=== PATIENT | female | born 1980 | race Caucasian/White ===

== ENCOUNTER 2017-05-10 22:33 | Emergency (ER) | payer BC, OTHER ==
--- NOTE | 2017-05-10 23:50 | CT ---
NONCONTRAST CT HEAD: 05/10/17 HISTORY: Unwitnessed fall. Head and neck pain. COMPARISON: None available. FINDINGS: There is no evidence of a hemorrhage, acute infarction, mass effect, or midline shift. The ventricula r system is normal in size, shape and position. There is left periorbital subcutaneous soft tissue sw elling. Calvarial structures are intact. No fracture is visualized. Mucosal thickening is present in the left sphenoid sinus. The remainder of the visualized paranasal s inuses and mastoid air cells are clear. IMPRESSION: 1. No acute intracranial abnormalities demonstrated. 2. Left periorbital subcutaneous soft tissue swelling. 3. Sinus disease involving the left sphenoid sinus. POS: [facility]
--- NOTE | 2017-05-11 00:02 | CT ---
NONCONTRAST CT CERVICAL SPINE 05/10/17 HISTORY: Unwitnessed fall. Head and neck pain. TECHNIQUE: Contiguous axial CT images are obtained through the cervical spine from the skull to the T1-2 level. Sagittal and coronal reformat images are provided. FINDINGS: There is slight retrolisthesis of C5 on C6 and C6 on C7. There is loss of intervertebral disc space h eight at these levels with associated end plate degenerative changes. The vertebral body heights are within normal limits. No fracture is present. There is rotation at the C1-2 level likely related to patient rotation as opposed to rotary subluxati on. There is a disc osteophyte complex and uncinate process hypertrophy at C5-6 level resulting in mild l eft sided neural foraminal narrowing. There is gas density adjacent to the left neural foramen which may represent gas within a small disc fragment. There is mild generalized narrowing of the central s noa canal. There is a broad based disc osteophyte complex with retrolisthesis also present at C6-7 level resulting in mild to moderate bilateral neural foraminal narrowing and mild narrowing of the ce ntral spinal canal. There is mild symmetric biapical pleural and parenchymal scarring present. There is mild prevertebral soft tissue swelling anterior to the C3-4 and C4-5 levels. There is mucosal thickening partially imaged within the left sphenoid sinus. IMPRESSION: 1. Small amount of fluid within the prevertebral space. Ligamentous injury cannot be entirely ex cluded. MRI is recommended. 2. No evidence of a fracture, but there are degenerative changes seen in the spine with broad ba sed disc osteophyte complexes at C4-5 and C5-6 levels and to a lesser extent the C6-7 level. There is encroachment on the central spinal canal at these levels with narrowing of the neural foramina. 3. Slight retrolisthesis of C5 on C6 and C6 on C7. 4. Above findings discussed with Dr. Shankar in the Emergency Department on 05/10/17 POS: [facility]
[2017-05-11] MEDS ORDERED: diphenhydrAMINE 50 MG/ML VIAL ONE (01:31)
--- NOTE | 2017-05-11 09:02 | CON ---
DATE OF CONSULTATION: 05/11/2017 Orville Nagel PA-C dictating for Dr. Edmundo Rodriguez. This is a 50-minute initial patient consult, in which greater than 50% of the exam was spent in couns eling and coordinating patient's care and review of patient's medical records and appropriate imaging studies. CHIEF COMPLAINT: Status post fall with posterior neck pain. HISTORY OF PRESENT ILLNESS: Ms. Hunt is a pleasant 37-year-old female, who fell at her home [facility] this morning. Apparently, the patient was partaking in alcohol and fell on the left side of her face. She began to experience some headache with concussive-like symptoms including short-term memor y loss. She perhaps had a few seconds of loss of consciousness. She was brought to [facility], and a head CT that was negative for intracranial pathology includin g negative intracranial bleed. A cervical spine CT was negative for fracture, but given the patient' s mechanism of injury and continued neck pain, an MRI was obtained, which shows a ligamentous injury of the anterior longitudinal ligament with even a tear of the ligament at the C5-6 level and it also extends into the disk space at the C5-C6 level. The cervical spine is maintained. The patient does not have any arm pain complaints at this time and no weakness in the arms. PHYSICAL EXAMINATION: The patient is awake, alert, and appropriate. She has full strength in the bi lateral upper and bilateral lower extremities with intact sensation to light touch throughout. She h as no myelopathic features on exam including negative Rain's bilaterally. No increased tone. She has no pronator drift and her GCS currently is 15. She is in a well-fitting [place] collar. IMPRESSION/DIAGNOSIS: Status post fall with posterior neck pain and anterior longitudinal ligament t ear of C5-6 noted on MRI. PLAN: I discussed the patient's case and imaging with Dr. Rodriguez. At this time, patient will need t o remain on an [place] collar at all times and a [place] collar for showers. We will see her in t he clinic on Saturday with upright cervical AP and lateral x-rays and I have discussed this in detail w ith the patient and her at bedside. I reviewed correct usage of her [place] collar and again s he would need to wear this at all times. We reviewed post-injury activity restrictions including not lifting more than 10 pounds and no driving at this time. Ample opportunity was given to the patient and her to ask their questions and concerns. The hope is that we can avoid surgery at this time, but we will reevaluate her on Saturday for further steps in treatment. Both the patient and her are agreeable to this plan. The patient is safe for discharge at this time.
--- NOTE | 2017-05-11 10:06 | MRI ---
PRELIMINARY REPORT/[facility]/EMERGENCY AFTER HOURS PROCEDURE: EXAM: MR Cervical Spine Without Intravenous Contrast CLINICAL HISTORY: 37 years old, female; Injury or trauma; Fall; Initial encounter; Sprain or strain, cervical ligaments ; Injury date: 05-10-17; Patient HX: Trip and fall, C/O head and neck pain, pt admits to alcohol consu mption; Additional info: Motion on exam; Multiple attempts made to aide w/ patient motion; Dr. Shankar ordered benadryl, second attempt made on c-spine exam, medication helped minimally TECHNIQUE: Magnetic resonance images of the cervical spine without intravenous contrast in multiple planes. COMPARISON: No relevant prior studies available. FINDINGS: Artifacts: Detail/sensitivity limited by motion and other artifacts. Vertebrae: See below. Marrow edema in the C5, C6, and C7 vertebral bodies. No visible fracture. Epidural space: No epidural hematoma or collection. Interspaces: There is intervertebral disc desiccation at all visible levels. See below. Spinal cord: Normal morphology and signal. Soft tissues: Prevertebral/retropharyngeal soft tissue edema at the C2-T2 levels. Anterior longitudin al ligament tear at C5-C6. Edema in the interspinous ligaments at C4-C5 and C5-C6. The posterior long itudinal ligaments appear intact. DISCS/SPINAL CANAL/NEURAL FORAMINA: C2-C3: No disc herniation. No significant stenosis. C3-C4: Mild diffuse disc bulge. Mild spinal canal stenosis. C4-C5: Diffuse disc bulge with superimposed broad-based posterior central zone disc extrusion and lef t uncovertebral osteophyte. Mild spinal canal stenosis and mild left neuroforaminal stenosis. C5-C6: Grade 1 retrolisthesis. Diffuse disc bulge with superimposed broad-based posterior and bilater al subarticular zone disc extrusion, mild endplate spurring. Moderate spinal canal stenosis and mild left and [id number] right neuroforaminal stenoses. There is possible right C6 nerve root impi ngement within the neural foramen. C6-C7: Grade 1 retrolisthesis. Diffuse disc bulge with superimposed broad-based posterior and bilater al subarticular zone disc extrusion, and endplate spurring. Moderate spinal canal stenosis and severe bilateral neuroforaminal stenoses. There are possible bilateral C7 nerve root impingements within th e neuroforamina. C7-T1: No disc herniation. No significant stenosis. IMPRESSION: Study limited by artifacts. Anterior longitudinal ligament tear at C5-C6. Interspinous ligaments sprains or partial tears at C4-C5 and C5-C6. Prevertebral/retropharyngeal soft tissue edema at the C2-T2 levels. Possible right C6 and bilateral C7 nerve root impingements due to neuroforaminal stenoses at C5-C6 an d C6-C7 respectively. Marrow edema in the C5, C6, and C7 vertebral bodies, which could be due to nonspecific inflammation or bone contusions. No visible fracture. Bone detail on MRI is limited. Please correlate with cervical spine CT if available. Thank you for allowing us to participate in the care of your patient. Dictated and Authenticated by: Pernell Alexander MD 05/11/2017 4:15 AM Central Time ([place] & [place]) FINAL REPORT EMERGENCY AFTER HOURS CERVICAL SPINE MRI: Date: 05/11/17 IMPRESSION: I agree with the preliminary interpretation given by Harsh. When correlating with CT examination perfo rmed earlier same date, there is no evidence for fracture. Advanced cervical degenerative changes are noted in addition to the traumatic soft tissue findings described, with severe bilateral foraminal n arrowing at C6-7 and to the left of midline at C5-6 on the basis of gas, which is presumably from the disc space. POS: [facility]
== END 2017-05-11 05:45 | disposition home or self-care (01) ==
LOC: SCSER 22:33
DX: S06.0X0A Concussion without loss of consciousness, initial encounter (principal); S13.4XXA Sprain of ligaments of cervical spine, initial encounter; S00.212A Abrasion of left eyelid and periocular area, initial encounter; S00.81XA Abrasion of other part of head, initial encounter; F17.210 Nicotine dependence, cigarettes, uncomplicated; W18.30XA Fall on same level, unspecified, initial encounter
CPT/HCPCS: 70450; 72125; 72141; 96374; J1200

== ENCOUNTER 2017-05-13 14:10 | Outpatient (CLI) | payer OTHER ==
--- NOTE | 2017-05-13 18:15 | RAD ---
THREE VIEWS CERVICAL SPINE: Date: 05-13-17 Comparison: None. History: Fall, pain. FINDINGS: There is straightening of the normal cervical lordosis. There is prominent disc space narrowing and d egenerative endplate change with anterior osteophyte formation noted at C5-6 and C6-7. There is prevertebral soft tissue swelling noted within the cervical spine which extends from the C2 level through the C7-T1 level, better assessed on recent cervical spine MRI. Open mouth odontoid view demonstrates a normal appearing dens and C1-2 articulation. Frontal imaging demonstrates uncal verte bral osteophyte formation on the right at C5-6 and C6-7 and on the left at C7. IMPRESSION: Soft tissue swelling of the prevertebral soft tissues, consistent with the findings seen on recent MR I suggesting anterior longitudinal ligament rupture and associated traumatic prevertebral soft tissue swelling. POS: [facility]
== END 2017-05-13 14:11 | disposition home or self-care (01) ==
LOC: TBSIIMAG 14:10
PROVIDERS: ATTEND Surgery
DX: M54.2 Cervicalgia (principal); R22.1 Localized swelling, mass and lump, neck
CPT/HCPCS: 72040